=== PATIENT | male | born 1950 | race Caucasian/White ===

== ENCOUNTER 2019-09-02 11:19 | Observation (INO) | payer MEDICARE ==
[2019-09-02] MEDS ORDERED: Sodium Chloride 0.9% 1000 ML 1,000 ML ONE (12:07)
--- NOTE | 2019-09-02 12:08 | ERPHSYRPT ---
- History of Present Illness Time Seen by Provider: 09/02/19 12:05 Source: patient Exam Limitations: no limitations Patient Subjective Stated Complaint: Pt reports falling at home and too weak to get up on his own Triage Nursing Assessment: Pt presented to the ED via [facility] with chief complaint of "found down." EMS reported patient requiring lifting assistance off the floor the day prior. EMS reported patient found down and covered in his own urine and feces. Pt reported increase general weakness to the point of not being able to ambulate without assistance. Pt has hx of parkinson's. Pt presented alert et oriented x3. Denies chest pain/shortness of breath. Noted global weakness. Noted dependent edema in bilateral lower extremities. Symmetrical chest expansion. Lungs clear with adequate airflow. Not chronic vascular changes to lower extremities. Pt reported bilateral rib pain from laying on the floor. Denies numbness/tingling to all extremities. Physician History: Pt reports falling at home and too weak to get up on his own EMS reported patient requiring lifting assistance off the floor the day prior. EMS reported patient found down and covered in his own urine and feces. Pt reported increase general weakness to the point of not being able to ambulate without assistance. Pt has hx of parkinson's. Denies chest pain/shortness of breath. Noted global weaknes. Not chronic vascular changes to lower extremities. Pt reported bilateral rib pain from laying on the floor. Denies numbness/tingling to all extremities. Timing/Duration: today Associated Symptoms: denies symptoms Allergies/Adverse Reactions: No Known Drug Allergies Allergy (Unverified 09/02/19 12:05) Travel Risk - International Travel Have you traveled outside of the country in past 3 weeks: No Have you or anyone close to you been diagnosed with or: No Do your reside in a community with a known COVID-19 case?: Yes If Yes where:: [facility] - Coronavirus Screening Has patient experienced Coronavirus symptoms: No - Review of Systems Constitutional: No Fever, No Chills Eyes: No Symptoms Ears, Nose, & Throat: No Symptoms Respiratory: No Cough, No Dyspnea Cardiac: No Chest Pain, No Edema, No Syncope Abdominal/Gastrointestinal: No Abdominal Pain, No Nausea, No Vomiting, No Diarrhea Genitourinary Symptoms: No Dysuria Musculoskeletal: No Back Pain, No Neck Pain Skin: No Rash Neurological: No Dizziness, No Focal Weakness, No Sensory Changes Psychological: No Symptoms Endocrine: No Symptoms All Other Systems: Reviewed and Negative - Past Medical History Pertinent Past Medical History: Yes Neurological History: Other ENT History: No Pertinent History Cardiac History: No Pertinent History Respiratory History: No Pertinent History Endocrine Medical History: No Pertinent History Musculoskeletal History: No Pertinent History GI Medical History: No Pertinent History History: No Pertinent History Psycho-Social History: No Pertinent History Male Reproductive Disorders: Prostate Cancer Other Medical History: Parkinson's - Past Surgical History Past Surgical History: Yes Neuro Surgical History: No Pertinent History Cardiac: No Pertinent History Respiratory: No Pertinent History Genitourinary: Other Musculoskeletal: No Pertinent History Male Surgical History: Other Other Surgical History: Seed impantation for prostate cancer. Reported bladder surgery secondary to prostate seed - Social History Smoking Status: Never smoker Exposure to second hand smoke: No Drug Use: none Patient Lives Alone: Yes - Nursing Vital Signs Nursing Vital Signs: Initial Vital Signs Temperature 98 F 09/02/19 11:20 Pulse Rate 103 H 09/02/19 11:20 Respiratory Rate 18 09/02/19 11:20 Blood Pressure 179/93 09/02/19 11:20 O2 Sat by Pulse Oximetry 96 09/02/19 11:20 Pain Scale Pain Intensity 1 - Physical Exam General Appearance: no apparent distress, alert Eye Exam: PERRL/EOMI, eyes nml inspection Ears, Nose, Throat Exam: normal ENT inspection, TMs normal, pharynx normal, moist mucous membranes Neck Exam: normal inspection, non-tender, supple, full range of motion Respiratory Exam: normal breath sounds, lungs clear, No respiratory distress Cardiovascular Exam: regular rate/rhythm, normal heart sounds, normal peripheral pulses Gastrointestinal/Abdomen Exam: soft, normal bowel sounds, No tenderness, No mass Back Exam: normal inspection, normal range of motion, No CVA tenderness, No vertebral tenderness Extremity Exam: normal inspection, normal range of motion, pelvis stable Neurologic Exam: alert, oriented x 3, cooperative, normal mood/affect, nml cerebellar function, nml station & gait, sensation nml, No motor deficits Skin Exam: normal color, warm, dry, No rash Lymphatic Exam: No adenopathy SpO2: 96 - Course Nursing assessment & vital signs reviewed: Yes Ordered Tests: Active Orders 24 hr Category Date Time Status CBC W DIFF Stat Lab 09/02/19 12:17 Completed CMP Stat Lab 09/02/19 12:17 Completed Medication Summary Generic Name Dose Route Start Last Admin Trade Name Emelia PRN Reason Stop Dose Admin Sodium Chloride 1,000 mls @ 50 mls/hr 09/02/19 12:15 09/02/19 12:09 Sodium Chloride 0.9% 1000 Ml IV 10/02/19 12:14 50 mls/hr .Q20H MINOR Administration Lab/Rad Data: Laboratory Result Diagrams 09/02/19 12:17 09/02/19 12:17 Laboratory Results 09/02/19 09/02/19 Range/Units 12:17 12:17 WBC 11.5 H (4.0-10.5) K/mm3 RBC 4.88 (4.1-5.6) M/mm3 Hgb 14.6 (12.5-18.0) gm/dl Hct 43.5 (42-50) % MCV 89.1 (78-100) fl MCH 29.9 (26-32) pg MCHC 33.6 (32-36) g/dl RDW 13.4 (11.5-14.0) % Plt Count 245 (150-450) K/mm3 MPV 10.0 (7.5-11.0) fl Gran % 80.5 H (36.0-66.0) % Eos # (Auto) 0.03 (0-0.5) Absolute Lymphs (auto) 1.17 (1.0-4.6) Absolute Monos (auto) 1.01 (0.0-1.3) Lymphocytes % 10.2 L (24.0-44.0) % Monocytes % 8.8 (0.0-12.0) % Eosinophils % 0.3 (0.00-5.0) % Basophils % 0.2 (0.0-0.4) % Absolute Granulocytes 9.27 H (1.4-6.9) Basophils # 0.02 (0-0.4) Sodium 140 (137-145) mmol/L Potassium 4.1 (3.5-5.1) mmol/L Chloride 106 (98-107) mmol/L Carbon Dioxide 19 L (22-30) mmol/L Anion Gap 19.6 H (5-15) MEQ/L BUN 20 (9-20) mg/dL Creatinine 1.06 (0.66-1.25) mg/dL Estimated GFR > 60.0 ML/MIN Glucose 140 H (74-106) mg/dL Calcium 9.0 (8.4-10.2) mg/dL Total Bilirubin 1.80 H (0.2-1.3) mg/dL AST 495 H (17-59) U/L ALT 93 H (0-50) U/L Alkaline Phosphatase 99 (38-126) U/L Serum Total Protein 7.7 (6.3-8.2) g/dL Albumin 4.0 (3.5-5.0) g/dL - Progress Progress: unchanged Discussed with DrSavannah: Saravanan Counseled pt/family regarding: diagnosis, need for follow-up - Departure Departure Disposition: Observation Clinical Impression: Parkinson disease, symptomatic, Prostate cancer Condition: Fair Critical Care Time: No Referrals: REBEKAH STEEN [COURTESY STAFF] -
[2019-09-02] MEDS ORDERED: Sodium Chloride 0.9% 1000 ML 1,000 ML IV SCH (12:15)
[2019-09-02 12:19] LABS: Absolute Neutrophil Ct (ANC) 9.27 (1.4-6.9); BASOPHIL % 0.2 % (0.0-0.4); Basophil (Absolute #) 0.02 (0-0.4); Eosinophil % 0.3 % (0.00-5.0); Eosinophil (Absolute #) 0.03 (0-0.5); Hematocrit 43.5 % (42-50); Hemoglobin 14.6 gm/dl (12.5-18.0); Lymphocyte (Absolute #) 1.17 (1.0-4.6); Lymphocytes % 10.2 % (24.0-44.0); Mean Cell Volume 89.1 fl (78-100); Mean Corpuscular Hemoglobin 29.9 pg (26-32); Mean Corpuscular Hgb Concent. 33.6 g/dl (32-36); Monocyte (Absolute #) 1.01 (0.0-1.3); Monocytes % 8.8 % (0.0-12.0); Neutrophil % 80.5 % (36.0-66.0); Platelet Count 245 K/mm3 (150-450); Red Blood Count 4.88 M/mm3 (4.1-5.6); Red Cell Distribution Width 13.4 % (11.5-14.0); White Blood Count 11.5 K/mm3 (4.0-10.5)
[2019-09-02 12:30] LABS: ALKALINE PHOSPHATASE 99 U/L (38-126); ANION GAP 19.6 MEQ/L (5-15); BLOOD UREA NITROGEN 20 mg/dL (9-20); CHLORIDE 106 mmol/L (98-107); Carbon Dioxide 19 mmol/L (22-30); Creatinine 1 1.06 mg/dL (0.66-1.25); Glucose 140 mg/dL (74-106); Potassium 4.1 mmol/L (3.5-5.1); SGOT/AST 495 U/L (17-59); SGPT/ALT 93 U/L (0-50); SODIUM 140 mmol/L (137-145); Total Protein 7.7 g/dL (6.3-8.2)
[2019-09-02] MEDS ORDERED: MEDICATION INTERVENTION MC SCH (15:15)
[2019-09-02] MEDS: Sodium Chloride 0.9% 1000 ML 1,000 ML IV SCH (15:20)
[2019-09-02] MEDS: Sinemet 25/250 MG PO SCH ×2 (15:27→21:27)
[2019-09-02] MEDS: Mirapex 0.5 MG Tablet PO SCH ×2 (15:27→21:27)
[2019-09-02] MEDS: NYSTOP 30 GM CREAM TOP SCH ×2 (15:30→21:28)
[2019-09-02] MEDS: PATIENT OWN MEDICATION PO SCH (15:35)
[2019-09-02] MEDS ORDERED: PRAMIPEXOLE DI HCL PO SCH (22:00)
[2019-09-02] MEDS ORDERED: TYLENOL 325 MG PO PRN (22:11)
[2019-09-03 01:13] LABS: Appearance SLIGHTLY CLOUDY (CLEAR); Bacteria PACKED /HPF (NEGATIVE); Bilirubin NEGATIVE (NEGATIVE); Blood MODERATE Ery/ul (0-5); Glucose 50 mg/dL (NEGATIVE); Hyaline Casts 0-2 /LPF (0-2); Ketones SMALL (NEGATIVE); Leukocyte Esterase MODERATE (NEGATIVE); Mucus SLIGHT /HPF (NEGATIVE); Nitrite POSITIVE (NEGATIVE); Protein,Urine Dip 30 (Negative); Specific Gravity 1.017 (1.005-1.025); Urobilinogen 4 mg/dL (0-1); WBC 26-50 /HPF (0-5)
[2019-09-03] MEDS: Sodium Chloride 0.9% 1000 ML 1,000 ML IV SCH (02:14)
[2019-09-03] MEDS ORDERED: ROCEPHIN 1 Gm-D5w 50 ml Bag** 1 G/50 ML IVPB IV SCH ×2 (03:00→22:00)
[2019-09-03 04:47] LABS: BASOPHIL % 0.4 % (0.0-0.4); Basophil (Absolute #) 0.03 (0-0.4); Eosinophil % 1.8 % (0.00-5.0); Eosinophil (Absolute #) 0.15 (0-0.5); Hematocrit 37.7 % (42-50); Hemoglobin 12.5 gm/dl (12.5-18.0); Lymphocyte (Absolute #) 1.61 (1.0-4.6); Lymphocytes % 19.8 % (24.0-44.0); Mean Cell Volume 89.8 fl (78-100); Mean Corpuscular Hemoglobin 29.8 pg (26-32); Mean Corpuscular Hgb Concent. 33.2 g/dl (32-36); Mean Platelet Volume 9.7 fl (7.5-11.0); Monocyte (Absolute #) 0.83 (0.0-1.3); Monocytes % 10.2 % (0.0-12.0); Neutrophil % 67.8 % (36.0-66.0); Platelet Count 233 K/mm3 (150-450); Red Cell Distribution Width 13.3 % (11.5-14.0); White Blood Count 8.1 K/mm3 (4.0-10.5)
[2019-09-03 04:59] LABS: ALBUMIN 3.3 g/dL (3.5-5.0); ALKALINE PHOSPHATASE 81 U/L (38-126); ANION GAP 10.8 MEQ/L (5-15); BLOOD UREA NITROGEN 17 mg/dL (9-20); CHLORIDE 107 mmol/L (98-107); Calcium 8.4 mg/dL (8.4-10.2); Carbon Dioxide 23 mmol/L (22-30); Creatinine 1 0.83 mg/dL (0.66-1.25); Glucose 110 mg/dL (74-106); Potassium 3.4 mmol/L (3.5-5.1); SGOT/AST 308 U/L (17-59); SGPT/ALT 31 U/L (0-50); SODIUM 137 mmol/L (137-145); Total Protein 6.6 g/dL (6.3-8.2)
[2019-09-03] MEDS ORDERED: RASAGILINE MESYLATE 1 MG PO SCH (10:00)
[2019-09-03] MEDS: Sinemet 25/250 MG PO SCH ×4 (10:45→21:56)
[2019-09-03] MEDS: Mirapex 0.5 MG Tablet PO SCH ×3 (10:45→21:55)
[2019-09-03] MEDS: PATIENT OWN MEDICATION PO SCH (10:46)
[2019-09-03] MEDS: NYSTOP 30 GM CREAM TOP SCH ×3 (15:50→21:55)
[2019-09-04] MEDS ORDERED: Sodium Chloride 0.9% 10 ML FLUSH Syringe IV SCH (06:00)
[2019-09-04 07:27] LABS: HEPATITIS A IGM Non Reactive (Non Reactive); HEPATITIS B VIRUS CORE TOT AB Non Reactive (Non Reactive); HEPATITIS C VIRUS ANTIBODY Non Reactive (Non Reactive); Hepatitis B Surface Ab.Quant. <3.50 mIU/mL (0.00-8.49); Hepatitis B Surface Antigen Non Reactive (Non Reactive)
[2019-09-04 07:31] VITALS: BP 159/84; PULSE 77; O2SAT 96
--- NOTE | 2019-09-04 08:49 | PCM.DS ---
Discharge Summary Date of Admission: 09/02/19 13:29 Admitting Physician: LINDA DENSON Primary Care Provider: ISABEL LOU Allergies Allergies No Known Drug Allergies Allergy (Unverified 09/02/19 12:05) Hospital Summary - Hospital Course Hospital Course: Pt is a 68 yo male pt of mine from [facility] (however, has always seen director operations) with Parkinson's, hx prostate CA, and hx hyperglycemia who was admitted through ER after being found down at home. The day prior to admission he was down for 12 hours, EMS was called who helped him up but he wasn't taken to the hospital. The day of admission he fell again and was down for 12 hours; EMS brought him in where he was found to have UTI and CK of 11,090. He was given IV fluids and started on IV rocephin (today is day #3). On admission WBC were 11.5; yesterday decreased to normal to 8.1. AST was 495 on admission, then decreased to 308. ALT was 93 on admission and decreased to 31. Tbili was 1.8 initially, then overnight down to 0.9. Hepatitis panel was done and was neg for Hep A, B, and C (also, pt is not immune to Hep B). Vitals have been stable during his admission. He did have some elevated bp to 187 systolic on admission but yesterday and today they have all been under 160 systolic. Pt states he's been checking his blood sugars daily for some time due to being "borderline diabetic." I informed him that he has crossed the border into diabetes due to his A1c of 7.19. He is feeling well this morning. His CK was down to 4800 yesterday morning. He has been up some. His sister is coming to get him from [place] and he is going to stay with her from now on instead of living by himself. He has a urine culture pending. I will make sure I have his sister's number so we can call when the culture results are back in the event he may need a different antibiotic. - Vitals & Intake/Output Vital Signs: Vital Signs Temperature 97.7 F 09/04/19 07:30 Pulse Rate 77 09/04/19 07:30 Respiratory Rate 18 09/04/19 07:30 Blood Pressure 159/84 09/04/19 07:30 O2 Sat by Pulse Oximetry 96 09/04/19 07:30 Intake & Output: Intake & Output 09/01/19 09/02/19 09/03/19 09/04/19 11:59 11:59 11:59 11:59 Intake Total 2778 463 Output Total 475 625 Balance 2303 -162 Weight 119 kg 119.1 kg - Lab Result Diagrams: 09/03/19 04:40 09/03/19 04:40 Lab Results-Last 24 Hrs: Lab Results-Last 24 Hours 09/03/19 Range/Units 04:40 Hepatitis A IgM Ab Non Reactive (Non Reactive) Hep Bs Antigen Non Reactive (Non Reactive) Hep Bs Antibody, Quant <3.50 (0.00-8.49) mIU/mL Hep B Core Total Ab Non Reactive (Non Reactive) Hepatitis C Antibody Non Reactive (Non Reactive) Micro Results-Entire Visit: Microbiology 09/03/19 00:24 Urine Culture - Preliminary Urine, Void GRAM NEGATIVE ID AND SENSITIVITY PENDING Discharge Exam General Appearance: no apparent distress, alert Neurologic Exam: oriented x 3, cooperative, other (Tremor in UE R>L) Eye Exam: eyes nml inspection Ears, Nose, Throat Exam: moist mucous membranes Neck Exam: normal inspection, non-tender, No lymphadenopathy Respiratory Exam: normal breath sounds, lungs clear, No crackles/rales, No rhonchi, No wheezing Cardiovascular Exam: regular rate/rhythm, normal heart sounds, No murmur Back Exam: normal inspection, No rash Extremity Exam: other (legs generally edematous bilat; covered with barrier cream. there appear to be some chronic venous stasis changes with mild erythema/ brown discoloration.) Skin Exam: warm, No rash Wound Assessment: Skin/Wound Assessment Wound/Incision Assessment Start: 09/02/19 15: 18 Text: Status: Active Freq: Q6H Protocol: Document 09/04/19 07:12 LYNDON (Rec: 09/04/19 07:14 LYNDON [id number]) Wound/Incision Assessment Medial Sacrum Wound Assessment Shift Assessment Wound Type Pressure Ulcer Wound Stage Stage II Drainage Amount None General Appearance Open to air Reddened Wound Bed Greatest Portion Pale [place] Surrounding Tissue [place] Bright Red Comment Applied barrier cream to site. some bruises noted on left buttocks. small abrasion noted on right elbow. barrier cream applied. Wound Photo Photo Taken Yes Date: 09/03/19 Time: 01:41 Distance from Wound: at bedside Comment: pics on chart Final Diagnosis/Problem List - Final Discharge Diagnosis/Problem (1) UTI (urinary tract infection) Current Visit: Yes Status: Acute Assessment & Plan: has finished 2d of IV rocephin; will send him home on macrobid for 5 more days, but will call if sensitivity results indicate a change in antbiotic is needed. Code(s): N39.0 - URINARY TRACT INFECTION, SITE NOT SPECIFIED (2) Diabetes mellitus Current Visit: Yes Status: Chronic Assessment & Plan: New dx, due to elevated A1c of 7.19. I did not start him on any medication; he will need to discuss with new PCP and start in [place]. Code(s): E11.9 - TYPE 2 DIABETES MELLITUS WITHOUT COMPLICATIONS (3) Hx of malignant neoplasm of prostate Current Visit: Yes Status: Chronic Code(s): Z85.46 - PERSONAL HISTORY OF MALIGNANT NEOPLASM OF PROSTATE (4) Parkinson disease, symptomatic Current Visit: Yes Status: Chronic Code(s): G20 - PARKINSON'S DISEASE - Discharge Disposition: Home, Self-Care Condition: Good Prescriptions: New Nitrofurantoin Monohyd/M-Cryst [Macrobid 100 mg Capsule] 100 mg PO BID #10 capsule Nystatin Cream 30 gm [Nystop 30 gm Cream] 2 gm TOP TID tube Continue Rasagiline Mesylate 1 mg PO DAILY Pramipexole Di-HCl [Pramipexole Dihydrochloride] 1 tab PO TID Carbidopa/Levodopa [Carbidopa-Levodopa 25-250 Tab] 1 tab PO QID Instructions: Preventing Falls Additional Instructions: FOLLOW UP WITH PRIMARY PHYSICIAN IN [place].
--- NOTE | 2019-09-04 09:36 | HP ---
HISTORY OF PRESENT ILLNESS: This is a 68 year-old man who reports he had Parkinson's disease for a number of years but worse in the past two weeks. He sees Dr. Huffman for this. He reports he has had multiple falls in the past two weeks. He reports that he fell once and was on the floor for 12 hours before he was able to get someone's attention. EMS came out and helped him up and then checked on him through the day. He states but then that evening he fell again and again was on the floor for 12 hours until he was able to obtain help. He usually tries to use his cell phone but did not have this with him either time. He reports when he would fall different things would fall on him as well. He usually uses a cane for ambulation. He has been living at home and has been able to take care of himself as far as getting his own medications and groceries until these past two weeks. He has family in [place] and states that he plans to go with them when they arrive here. The patient states that his legs have always been big and he does not feel like they are not any more swollen than normal. He reports a history of having some high blood sugar and needing to check his blood sugars in the past but reports his fasting blood sugars were never over 120. REVIEW OF SYSTEMS: He denies any chest pain. No palpitations. No dyspnea. No abdominal pain. No pain with urination. No constipation. He has a normal appetite. MEDICATIONS: Please see the home medication reconciliation list which I reviewed. ALLERGIES: NKDA. PAST MEDICAL HISTORY: Parkinson's. Prostate cancer. History of kidney stone. He reports prostate seed migrated to his bladder. Hyperglycemia. PAST SURGICAL HISTORY: Stone removed from his bladder. SOCIAL HISTORY: He lives alone. He used to be an calculator operator of heavy equipment. Denies any alcohol, drugs or tobacco use. FAMILY HISTORY: He had a great uncle who had Parkinson's. PHYSICAL EXAMINATION: VITAL SIGNS: Temperature current 97.7F, temperature max 98.6F, heart rate 86, respiratory rate 16, blood pressure 144/87. Oxygen saturation 94% on room air. GENERAL: The patient is sitting up in bed, a pleasant talkative man in no acute distress. CVS: He has a regular rate and rhythm. No murmurs, gallops or rubs. CHEST: Clear to auscultation bilaterally. No crackles or wheezes. ABDOMEN: Soft, nontender, nondistended with normal bowel sounds. EXTREMITIES: He has trace edema to his knees bilaterally. No clubbing or cyanosis. NEURO: He has a resting tremor of his right hand. LABORATORY DATA AND TESTS: On admission his CPK was 11,090, repeat 4,800 this morning. White blood cell count 11.5 on admission and now 8.1. Potassium 3.4 this morning. Hemoglobin A1C 7.1. AST 495 on admission and now 308. ALT 93 and now 31. UA revealed packed bacteria and 26 to 50 white blood cells. Urine culture is in lab. ASSESSMENT AND PLAN: 1) RHABDOMYOLYSIS: This has improved with IV fluids and taking oral fluids well. His creatinine is normal. Will plan to continue his oral rehydration and he will be stable for discharge at this time. 2) PARKINSON'S RESULTING IN GAIT INSTABILITY: Will try to have the nurse's get him up to a chair today and ask discharge planning to see him for a safe disposition for him. Will continue with his current home medications. 3) URINARY TRACT INFECTION: I have started ceftriaxone. If he is discharged will plan to continue with Cefdinir as an outpatient. 4) HYPERGLYCEMIA: This was discussed with the patient. He may even have diabetes, will have to recheck his fasting blood work again and this can be done as an outpatient. He was instructed on diet changes and agrees that he needs to avoid concentrated sweets and work on weight loss.
== END 2019-09-04 09:15 | disposition home or self-care (01) ==
LOC: ED 11:19 → MED SURG 13:29
PROVIDERS: ADMIT Internal Medicine; ATTEND Internal Medicine
DX: N39.0 Urinary tract infection, site not specified (principal); M62.82 Rhabdomyolysis; E11.9 Type 2 diabetes mellitus without complications; G20 Parkinson's disease; L89.152 Pressure ulcer of sacral region, stage 2; R26.81 Unsteadiness on feet; R53.1 Weakness; R29.6 Repeated falls; Z79.899 Other long term (current) drug therapy; W19.XXXA Unspecified fall, initial encounter; Y92.009 Unspecified place in unspecified non-institutional (private) residence as the place of occurrence of the external cause; Z85.46 Personal history of malignant neoplasm of prostate
CPT/HCPCS: 36415; 80053; 80074; 81001; 82550; 83036; 84134; 85025; 87077; 87086; 87186; 96360; 99284; G0378; J0696; A9270-GY